=== PATIENT | male | born 2000 | race Two or more races ===

== ENCOUNTER 2023-06-02 22:08 | Emergency (ER) | payer OTHER ==
[2023-06-02 23:06] LABS: CORONAVIRUS COVID-19 NAA NEGATIVE (NEGATIVE); INFLUENZA A NAA NEGATIVE (NEGATIVE); RESPIRATORY SYNCYTIAL VIR NAA NEGATIVE (NEGATIVE)
[2023-06-02] MEDS ORDERED: Lactated Ringers 1,000 ML IV ONE (23:07)
[2023-06-02 23:27] LABS: BASOPHILS PERCENT AUTO 0.3 % (0.0-1.0); EOSINOPHILS PERCENT AUTO 0.1 % (0.0-6.0); HEMATOCRIT 39.6 % (42.0-52.0); HEMOGLOBIN 14.1 gm/dl (14.0-18.0); IMMATURE GRAN ABSOLUTE AUTO 0.09 K/mm3 (0.00-0.05); IMMATURE GRAN PERCENT AUTO 0.6 % (0.0-0.4); LYMPHOCYTES ABSOLUTE AUTO 1.6 K/mm3 (1.0-4.8); LYMPHOCYTES PERCENT AUTO 11.7 % (24.0-44.0); MEAN CORPUSCULAR HEMOGLOBIN 29.9 pg (28.0-32.0); MEAN CORPUSCULAR HGB CONC 35.6 g/dl (32.0-36.0); MEAN CORPUSCULAR VOLUME 84.1 fl (83.0-99.0); MEAN PLATELET VOLUME 9.3 fl (9.4-12.4); MONOCYTES ABSOLUTE AUTO 1.2 K/mm3 (0.0-0.8); MONOCYTES PERCENT AUTO 8.4 % (0.0-8.0); NEUTROPHILS PERCENT AUTO 78.9 % (41.0-71.0); PLATELET COUNT,PLT 300 K/mm3 (150-400); RED BLOOD CELL COUNT 4.71 M/mm3 (4.52-5.90); WHITE BLOOD CELL COUNT,WBC 13.99 K/mm3 (3.9-11.3)
[2023-06-02] MEDS ORDERED: Ketorolac 30 MG/ML SDV IVPUSH ONE (23:31)
[2023-06-02 23:57] LABS: A/G RATIO 0.8 (1-2); ALBUMIN 3.8 g/dl (3.4-5.0); ANION GAP 21.5 (5-15); BILIRUBIN TOTAL 0.8 mg/dL (0.2-1.0); BUN/CREATININE RATIO 6.4 (14-18); CALCIUM 9.2 mg/dL (8.5-10.1); CREATININE 1.4 mg/dL (0.7-1.3); EST CRCL DRUG DOSING (CG) 69.89 mL/min; POTASSIUM,K 3.5 mEq/L (3.5-5.1); PROTEIN TOTAL,TP 8.4 g/dl (6.4-8.2)
[2023-06-03 00:35] LABS: APPEARANCE,URINE CLEAR (Clear); BILIRUBIN,URINE NEGATIVE (Negative); COLOR,URINE YELLOW (Yellow); GLUCOSE,URINE NEGATIVE (Negative); KETONES,URINE 1+ (Negative); LEUKOCYTE ESTERASE,URINE NEGATIVE (Negative); NITRITE,URINE NEGATIVE (Negative); OCCULT BLOOD,URINE NEGATIVE (Negative); PH,URINE 7.5 (5.0-8.0); PROTEIN,URINE 1+ (Negative); UROBILINOGEN,URINE 0.2 (0.2-1.0)
[2023-06-03 00:49] LABS: BACTERIA,URINE RARE /hpf (FEW); EPITHELIAL CELLS,URINE 0-5 /hpf (0-5); MUCUS,URINE NOT SEEN /hpf (FEW); RBC,URINE 0-5 /hpf (0-5); WBC,URINE 0-5 /hpf (0-5)
[2023-06-03] MEDS ORDERED: LACTATED RINGERS IV ONE (01:36)
== END 2023-06-03 03:45 | disposition home or self-care (01) ==
LOC: JD.ED 22:08
DX: B34.9 Viral infection, unspecified (principal); E86.0 Dehydration; R65.20 Severe sepsis without septic shock; Z20.822 Contact with and (suspected) exposure to COVID-19
CPT/HCPCS: 0241U; 36415; 71045; 80053; 81001; 82550; 83605; 85025; 87040; 87651; 96361; 96374; 99284; J1885; J7120